=== PATIENT | female | born 1950 | race Caucasian/White ===

== ENCOUNTER 2017-06-26 09:40 | Outpatient (CLI) | payer OTHER ==
[~2017-06-26 09:40] MED LIST: ASPI81TA52 PO; HCTZ25T PO; IRBESARTAN/HCTZ PO; LECI12002 PO; PANT500T PO; POTA10TA19 PO
== END 2017-06-26 23:59 | disposition home or self-care (01) ==
LOC: RAD 09:40
PROVIDERS: ATTEND Internal Medicine
DX: M47.816 Spondylosis without myelopathy or radiculopathy, lumbar region (principal); M16.11 Unilateral primary osteoarthritis, right hip; I11.0 Hypertensive heart disease with heart failure; I50.9 Heart failure, unspecified
CPT/HCPCS: 72110; 73522

== ENCOUNTER 2017-09-04 06:50 | Outpatient (CLI) | payer OTHER ==
[2017-09-04 07:20] LABS: BASOPHILS % (AUTO) 0.4 % (0-1); EOSINOPHILS # (AUTO) 0.2 X10'3 (0-0.9); EOSINOPHILS % (AUTO) 4.3 % (0-6); HEMATOCRIT 40.6 % (35.0-45.0); HEMOGLOBIN 14.4 g/dl (12.0-16.0); LYMPHOCYTES # (AUTO) 1.4 X10'3 (1.1-4.8); MEAN CORPUSCULAR HEMOGLOBIN 30.5 PG (27.0-31.0); MEAN CORPUSCULAR HGB CONC 35.3 % (33.0-36.5); MEAN CORPUSCULAR VOLUME 86.4 FL (78-98); MONOCYTES # (AUTO) 0.6 X10'3 (0-0.9); MONOCYTES % (AUTO) 10.8 % (2-12); NEUTROPHILS # (AUTO) 3.2 X10'3 (1.8-7.7); NEUTROPHILS % (AUTO) 58.5 % (42-75); PLATELET COUNT 254 X10'3 (140-440); RED CELL DISTRIBUTION WIDTH 14.4 % (11.5-14.5); WHITE BLOOD COUNT 5.5 X10'3 (4.5-11.0)
[2017-09-04 07:35] LABS: HEMOGLOBIN A1C 5.6 % (4.5-6.2)
[2017-09-04 07:45] LABS: ALANINE AMINOTRANSFERASE 29 U/L (12-78); ALBUMIN 3.5 G/DL (3.4-5.0); ALBUMIN/GLOBULIN RATIO 1.1 (1.1-1.5); ALKALINE PHOSPHATASE 44 IU/L (46-116); ANION GAP 9 (8-16); ASPARTATE AMINO TRANSFERASE 15 U/L (10-37); BILIRUBIN,TOTAL 0.6 MG/DL (0.1-1.0); BLOOD UREA NITROGEN 20 MG/DL (7-18); BUN/CREATININE RATIO 29.4 (6.6-38.0); CALCIUM 8.9 MG/DL (8.5-10.1); CHLORIDE 105 MMOL/L (99-107); CHOL/HDL RATIO 3.7 (0.00-4.99); CHOLESTEROL 142 MG/DL (0-200); CREATININE 0.68 MG/DL (0.40-0.90); GLUCOSE 135 MG/DL (70-104); HDL CHOLESTEROL 38 MG/DL (35-60); LDL CHOLESTEROL 74 MG/DL (50-100); POTASSIUM 3.6 MMOL/L (3.5-5.1); SODIUM 143 MMOL/L (135-145); TOTAL CARBON DIOXIDE 29.5 MMOL/L (24-32); TOTAL PROTEIN 6.6 G/DL (6.4-8.2); TRIGLYCERIDES 137 MG/DL (20-135); eGFR 86 ML/MIN
[2017-09-04 08:51] LABS: CLARITY,URINE SLIGHTLY CLOUDY (Clear); COLOR,URINE YELLOW (Yellow); GLUCOSE, URINE NEGATIVE (Neg); KETONES,URINE NEGATIVE (Neg); LEUKOCYTE ESTERASE ,URINE SMALL (Neg); NITRITES, URINE NEGATIVE (Neg); OCCULT BLOOD,URINE NEGATIVE (Neg); PROTEIN,URINE NEGATIVE (Neg); UROBILINOGEN,URINE 0.2 E.U/dL (0.2-1.0)
[2017-09-04 08:56] LABS: UA COLLECTION TYPE CLN CATCH MIDSTREAM
[2017-09-04 08:57] LABS: MUCUS STRANDS MANY /LPF (Neg); SQUAMOUS EPITHELIAL CELL,UR FEW /LPF (FEW); TRANSITIONAL EPI CELLS,URINE FEW /HPF
[2017-09-04 08:58] LABS: BACTERIA,URINE NONE SEEN /HPF (Neg); RBC,URINE 0-2 /HPF (0-2); WBC,URINE 0-4 /HPF (0-4)
== END 2017-09-04 23:59 | disposition home or self-care (01) ==
LOC: VAS 06:50
PROVIDERS: ATTEND Family Medicine
DX: M79.89 Other specified soft tissue disorders (principal); R60.0 Localized edema; R59.9 Enlarged lymph nodes, unspecified
CPT/HCPCS: 36415; 80053; 80061; 81001; 83036; 84439; 84443; 85025; 93971

== ENCOUNTER 2017-11-15 08:01 | Outpatient (CLI) | payer OTHER ==
[2017-11-15] VITALS (7 sets, daily range): BP systolic 114–128; BP diastolic 46–51
[~2017-11-15] VITALS: Ht 172.7 cm; Wt 81.0 kg
[2017-11-15] MEDS ORDERED: CAFFEINE CITRATE 60 MG/3 ML injection vial IV ONE ×2 (08:45→09:36)
[2017-11-15] MEDS ORDERED: regadenoson 0.4mg/5ml syringe IV ONE ×2 (08:45→09:36)
[2017-11-15] MEDS ORDERED: normal saline 500ml IV soln 500 ML IV ONE (08:45)
[2017-11-15] MEDS ORDERED: metoprolol tartrate 1mg/ml inj IV PRN (08:45)
[2017-11-15] MEDS ORDERED: atropine 0.1mg/ml 10ml syringe IV PRN (08:45)
[2017-11-15] MEDS ORDERED: nitroGLYCERIN 0.4mg SUBLingual tab SL PRN (08:45)
[2017-11-15] MEDS ORDERED: EZET10TA13 PO (14:57)
== END 2017-11-15 23:59 ==
LOC: RAD 08:01
PROVIDERS: ATTEND Internal Medicine Interventional Cardiology
DX: R09.89 Other specified symptoms and signs involving the circulatory and respiratory systems (principal); I25.10 Atherosclerotic heart disease of native coronary artery without angina pectoris; I11.0 Hypertensive heart disease with heart failure; I50.9 Heart failure, unspecified; R07.89 Other chest pain
CPT/HCPCS: 78452; 93017; A9500; J7030

== ENCOUNTER 2017-12-12 08:36 | Outpatient (CLI) | payer OTHER ==
[~2017-12-12 08:36] MED LIST changes: +EZET10TA13 PO
== END 2017-12-12 23:59 | disposition home or self-care (01) ==
LOC: RAD 08:36
PROVIDERS: ATTEND Registered Nurse
DX: M19.072 Primary osteoarthritis, left ankle and foot (principal); M21.622 Bunionette of left foot; I11.0 Hypertensive heart disease with heart failure; I50.9 Heart failure, unspecified
CPT/HCPCS: 73718

== ENCOUNTER → 2018-02-07 | Outpatient (CLI) | payer OTHER, MEDICARE ==
[~2018-02-07] MED LIST changes: +NITR100C6 PO
== END | disposition home or self-care (01) ==
LOC: RAD 10:31
PROVIDERS: ATTEND Family Medicine
DX: M25.461 Effusion, right knee (principal); M22.41 Chondromalacia patellae, right knee; I11.0 Hypertensive heart disease with heart failure; I50.9 Heart failure, unspecified; Z79.82 Long term (current) use of aspirin
CPT/HCPCS: 73721

== ENCOUNTER 2018-10-10 13:26 | Outpatient (CLI) | payer OTHER, MEDICARE ==
[~2018-10-10 13:26] MED LIST changes: +ASCO500C15 PO; +IRBE1TAB65 PO; -IRBESARTAN/HCTZ PO; -LECI12002 PO; -NITR100C6 PO
[2018-10-10] MEDS ORDERED: ACYC-202 PO (15:45)
[2018-10-10] MEDS ORDERED: DOXY100C43 PO (15:45)
== END 2018-10-10 23:59 | disposition home or self-care (01) ==
LOC: RAD 13:26
PROVIDERS: ATTEND Orthopaedic Surgery
DX: S83.231A Complex tear of medial meniscus, current injury, right knee, initial encounter (principal); M94.261 Chondromalacia, right knee; X58.XXXA Exposure to other specified factors, initial encounter; Y93.89 Activity, other specified; Y92.89 Other specified places as the place of occurrence of the external cause; Y99.8 Other external cause status
CPT/HCPCS: 73721

== ENCOUNTER 2018-10-10 15:03 | Emergency (ER) | payer OTHER, MEDICARE ==
[~2018-10-10] VITALS: Ht 172.7 cm; Wt 86.0 kg
[2018-10-10 15:23] VITALS: BP 154/73
[2018-10-10] MEDS ORDERED: ACYC-202 PO (15:45)
[2018-10-10] MEDS ORDERED: DOXY100C43 PO (15:45)
== END 2018-10-10 15:50 | disposition home or self-care (01) ==
LOC: ER 15:04
DX: L03.313 Cellulitis of chest wall (principal); B02.9 Zoster without complications; I25.10 Atherosclerotic heart disease of native coronary artery without angina pectoris; I10 Essential (primary) hypertension; I25.2 Old myocardial infarction; Z98.61 Coronary angioplasty status; Z98.890 Other specified postprocedural states; Z88.0 Allergy status to penicillin; Z88.2 Allergy status to sulfonamides; Z88.8 Allergy status to other drugs, medicaments and biological substances; Z79.82 Long term (current) use of aspirin; Z79.899 Other long term (current) drug therapy
CPT/HCPCS: 99283

== ENCOUNTER 2019-01-12 20:31 | Emergency (ER) | payer OTHER, MEDICARE ==
[~2019-01-12] VITALS: Ht 172.7 cm; Wt 85.0 kg
[2019-01-12 20:41] VITALS: BP 144/58
[2019-01-12] MEDS ORDERED: HYDR-4353 PO (22:00)
[2019-01-12] MEDS ORDERED: ketorolac tromethamine 15mg/ml inj. IM ONE (22:00)
[2019-01-12] MEDS ORDERED: orphenadrine citrate 60mg/2ml inj. IM ONE (22:00)
== END 2019-01-12 22:40 | disposition home or self-care (01) ==
LOC: ER 20:32
DX: M23.92 Unspecified internal derangement of left knee (principal); I25.10 Atherosclerotic heart disease of native coronary artery without angina pectoris; I10 Essential (primary) hypertension; I25.2 Old myocardial infarction; F10.99 Alcohol use, unspecified with unspecified alcohol-induced disorder; Z98.61 Coronary angioplasty status; Z98.890 Other specified postprocedural states; Z88.0 Allergy status to penicillin; Z88.2 Allergy status to sulfonamides; Z88.1 Allergy status to other antibiotic agents; Z88.8 Allergy status to other drugs, medicaments and biological substances; Z79.82 Long term (current) use of aspirin; Z79.899 Other long term (current) drug therapy; Y90.9 Presence of alcohol in blood, level not specified
CPT/HCPCS: 29505; 73564; 96372; 99283; J1885; J2360

== ENCOUNTER 2019-01-16 12:37 | Outpatient (CLI) | payer OTHER, MEDICARE ==
[~2019-01-16 12:37] MED LIST changes: -EZET10TA13 PO; +HYDR-4353 PO; +ZET10T PO
== END 2019-01-16 23:59 | disposition home or self-care (01) ==
LOC: RAD 12:37
PROVIDERS: ATTEND Family Medicine
DX: S83.242A Other tear of medial meniscus, current injury, left knee, initial encounter (principal); M25.462 Effusion, left knee; X58.XXXA Exposure to other specified factors, initial encounter; Y93.89 Activity, other specified; Y92.89 Other specified places as the place of occurrence of the external cause; Y99.8 Other external cause status
CPT/HCPCS: 73721

== ENCOUNTER 2019-01-30 07:59 | Outpatient (CLI) | payer OTHER, MEDICARE ==
[~2019-01-30 07:59] MED LIST changes: -HYDR-4353 PO
[2019-01-30 08:26] LABS: CLARITY,URINE SLIGHTLY CLOUDY (Clear); COLOR,URINE YELLOW (Yellow); GLUCOSE, URINE NEGATIVE (Neg); KETONES,URINE NEGATIVE (Neg); LEUKOCYTE ESTERASE ,URINE MODERATE (Neg); NITRITES, URINE NEGATIVE (Neg); OCCULT BLOOD,URINE NEGATIVE (Neg); PH,URINE 5.5 (4.8-8.0); PROTEIN,URINE NEGATIVE (Neg); UROBILINOGEN,URINE 0.2 E.U/dL (0.2-1.0)
[2019-01-30 08:29] LABS: BASOPHILS # (AUTO) 0.1 X10'3 (0-0.2); EOSINOPHILS # (AUTO) 0.2 X10'3 (0-0.9); EOSINOPHILS % (AUTO) 3.3 % (0-6); HEMATOCRIT 43.5 % (35.0-45.0); HEMOGLOBIN 14.7 g/dl (12.0-16.0); LYMPHOCYTES # (AUTO) 1.2 X10'3 (1.1-4.8); LYMPHOCYTES % (AUTO) 24.9 % (21-51); MEAN CORPUSCULAR HEMOGLOBIN 29.9 PG (27.0-31.0); MEAN CORPUSCULAR HGB CONC 33.9 g/dL (33.0-36.5); MEAN CORPUSCULAR VOLUME 88.2 FL (78-98); MONOCYTES # (AUTO) 0.6 X10'3 (0-0.9); MONOCYTES % (AUTO) 12.3 % (2-12); NEUTROPHILS # (AUTO) 2.9 X10'3 (1.8-7.7); NEUTROPHILS % (AUTO) 58.5 % (42-75); PLATELET COUNT 274 X10'3 (140-440); RED BLOOD COUNT 4.93 X10'6 (4.20-5.60)
[2019-01-30 08:34] LABS: UA COLLECTION TYPE CLN CATCH MIDSTREAM
[2019-01-30 08:38] LABS: BACTERIA,URINE 1+ /HPF (Neg); MUCUS STRANDS FEW /LPF (Neg); RBC,URINE 0-2 /HPF (0-2); RENAL CELLS, URINE FEW /HPF; SQUAMOUS EPITHELIAL CELL,UR FEW /LPF (FEW); WBC CLUMPS,URINE FEW /HPF (NEGATIVE)
[2019-01-30 08:48] LABS: ALANINE AMINOTRANSFERASE 26 U/L (12-78); ALBUMIN 3.6 G/DL (3.4-5.0); ALBUMIN/GLOBULIN RATIO 1.2 (1.1-1.5); ALKALINE PHOSPHATASE 48 IU/L (46-116); ANION GAP 3 (8-16); ASPARTATE AMINO TRANSFERASE 13 U/L (10-37); BILIRUBIN,TOTAL 0.5 MG/DL (0.1-1.0); BLOOD UREA NITROGEN 19 MG/DL (7-18); BUN/CREATININE RATIO 26.4 (6.6-38.0); CALCIUM 8.9 MG/DL (8.5-10.1); CHLORIDE 107 MMOL/L (99-107); CHOL/HDL RATIO 3.8 (0.00-4.99); CHOLESTEROL 128 MG/DL (0-200); CREATININE 0.72 MG/DL (0.40-0.90); GLUCOSE 138 MG/DL (70-104); HDL CHOLESTEROL 34 MG/DL (35-60); LDL CHOLESTEROL 73 MG/DL (50-100); POTASSIUM 3.5 MMOL/L (3.5-5.1); SODIUM 142 MMOL/L (135-145); TOTAL CARBON DIOXIDE 31.8 MMOL/L (24-32); TOTAL PROTEIN 6.7 G/DL (6.4-8.2); TRIGLYCERIDES 113 MG/DL (20-135); eGFR 81 ML/MIN
== END 2019-01-30 23:59 | disposition home or self-care (01) ==
LOC: LAB 07:59
PROVIDERS: ATTEND Family Medicine
DX: Z00.00 Encounter for general adult medical examination without abnormal findings (principal); N39.0 Urinary tract infection, site not specified; I11.0 Hypertensive heart disease with heart failure; I50.9 Heart failure, unspecified
CPT/HCPCS: 36415; 80053; 80061; 81001; 84439; 84443; 85025; 87088

== ENCOUNTER 2019-02-13 09:34 | Outpatient (CLI) | payer OTHER, MEDICARE | END 2019-02-13 23:59 | disposition home or self-care (01) | LOC: RAD 09:34 | PROVIDERS: ATTEND Orthopaedic Surgery | DX: M17.12 Unilateral primary osteoarthritis, left knee (principal); I11.0 Hypertensive heart disease with heart failure; I50.9 Heart failure, unspecified | CPT/HCPCS: 73564 ==

== ENCOUNTER 2019-03-04 15:28 | Emergency (ER) | payer MEDICARE, OTHER ==
[~2019-03-04] VITALS: Ht 172.7 cm; Wt 81.8 kg
[2019-03-04 15:42] VITALS: BP 130/62
[2019-03-04] MEDS ORDERED: ketorolac trometh. 30mg/ml inj. IM ONE (16:05)
== END 2019-03-04 16:24 | disposition home or self-care (01) ==
LOC: ER 15:29 → EEVIPCON 15:29 → ER 16:24
DX: M25.562 Pain in left knee (principal); M25.462 Effusion, left knee; G89.29 Other chronic pain; I25.10 Atherosclerotic heart disease of native coronary artery without angina pectoris; I10 Essential (primary) hypertension; I25.2 Old myocardial infarction; F10.99 Alcohol use, unspecified with unspecified alcohol-induced disorder; Z98.890 Other specified postprocedural states; Z98.61 Coronary angioplasty status; Z88.0 Allergy status to penicillin; Z88.1 Allergy status to other antibiotic agents; Z88.2 Allergy status to sulfonamides; Z88.8 Allergy status to other drugs, medicaments and biological substances; Z79.82 Long term (current) use of aspirin; Z79.899 Other long term (current) drug therapy; Y90.9 Presence of alcohol in blood, level not specified
CPT/HCPCS: 96372; 99283; J1885

== ENCOUNTER 2019-04-10 13:36 | Outpatient (CLI) | payer OTHER | END 2019-04-10 23:59 | disposition home or self-care (01) | LOC: VAS 13:36 | PROVIDERS: ATTEND Orthopaedic Surgery Sports Medicine | DX: R60.0 Localized edema (principal); I11.0 Hypertensive heart disease with heart failure; I50.9 Heart failure, unspecified | CPT/HCPCS: 93971 ==

== ENCOUNTER 2019-04-17 13:09 | Emergency (ER) | payer OTHER, MEDICARE ==
[~2019-04-17] VITALS: Ht 172.7 cm; Wt 87.0 kg
[2019-04-17 13:24] VITALS: BP 126/50
--- NOTE | 2019-04-17 14:11 | NUR ---
relieving RN for break, pt is resting quietly on gurney, waiting to be evaluated by provider
[2019-04-17] MEDS ORDERED: naproxen 500mg tablet PO ONE (14:25)
== END 2019-04-17 14:52 | disposition home or self-care (01) ==
LOC: ER 13:11
DX: S60.212A Contusion of left wrist, initial encounter (principal); I25.10 Atherosclerotic heart disease of native coronary artery without angina pectoris; I10 Essential (primary) hypertension; I25.2 Old myocardial infarction; Z95.5 Presence of coronary angioplasty implant and graft; Z98.890 Other specified postprocedural states; Z88.1 Allergy status to other antibiotic agents; Z88.0 Allergy status to penicillin; Z88.2 Allergy status to sulfonamides; Z79.82 Long term (current) use of aspirin; Z79.899 Other long term (current) drug therapy; W18.09XA Striking against other object with subsequent fall, initial encounter; Y93.89 Activity, other specified; Y92.89 Other specified places as the place of occurrence of the external cause; Y99.9 Unspecified external cause status
CPT/HCPCS: 29125; 73110; 99284

== ENCOUNTER 2019-07-03 07:03 | Outpatient (CLI) | payer OTHER, MEDICARE | END 2019-07-03 23:59 | disposition home or self-care (01) | LOC: LAB 07:03 | PROVIDERS: ATTEND Family Medicine | DX: R73.9 Hyperglycemia, unspecified (principal) | CPT/HCPCS: 36415; 82043; 83036 ==

== ENCOUNTER 2019-08-07 07:41 | Outpatient (CLI) | payer OTHER, MEDICARE ==
[2019-08-07 08:26] LABS: ALANINE AMINOTRANSFERASE 29 U/L (12-78); ALBUMIN 3.5 G/DL (3.4-5.0); ALBUMIN/GLOBULIN RATIO 1.2 (1.1-1.5); ALKALINE PHOSPHATASE 54 IU/L (46-116); ANION GAP 4 (8-16); ASPARTATE AMINO TRANSFERASE 17 U/L (10-37); BILIRUBIN,TOTAL 0.6 MG/DL (0.1-1.0); BLOOD UREA NITROGEN 16 MG/DL (7-18); BUN/CREATININE RATIO 23.9 (6.6-38.0); CHLORIDE 108 MMOL/L (99-107); CHOL/HDL RATIO 3.9 (0.00-4.99); CHOLESTEROL 150 MG/DL (0-200); CREATININE 0.67 MG/DL (0.40-0.90); GLUCOSE 136 MG/DL (70-104); HDL CHOLESTEROL 38 MG/DL (35-60); LDL CHOLESTEROL 91 MG/DL (50-100); POTASSIUM 3.5 MMOL/L (3.5-5.1); SODIUM 143 MMOL/L (135-145); TOTAL CARBON DIOXIDE 31.2 MMOL/L (24-32); TOTAL PROTEIN 6.5 G/DL (6.4-8.2); TRIGLYCERIDES 101 MG/DL (20-135); eGFR 87 ML/MIN
== END 2019-08-07 23:59 | disposition home or self-care (01) ==
LOC: RAD 07:41
PROVIDERS: ATTEND Family Medicine
DX: M25.511 Pain in right shoulder (principal); M25.512 Pain in left shoulder; R42 Dizziness and giddiness; E78.5 Hyperlipidemia, unspecified
CPT/HCPCS: 36415; 73030; 78452; 80053; 80061; A9500

== ENCOUNTER 2019-08-07 07:48 | Outpatient (CLI) | payer OTHER, MEDICARE ==
[~2019-08-07] VITALS: Ht 172.7 cm; Wt 85.5 kg
[2019-08-07] MEDS ORDERED: nitroGLYCERIN 0.4mg SUBLingual tab SL PRN (08:50)
[2019-08-07] MEDS ORDERED: normal saline 500ml IV soln 500 ML IV ONE (08:50)
[2019-08-07] MEDS ORDERED: aminophylline 250mg/10ml inj. IV PRN (08:50)
[2019-08-07] MEDS ORDERED: regadenoson 0.4mg/5ml syringe IV ONE (08:50)
[2019-08-07 10:35] VITALS: BP 128/53
[2019-08-07 10:52] VITALS: BP 144/72
[2019-08-07 10:53] VITALS: BP_SYST 130; BP_SYST 132; BP_DIAS 51
[2019-08-07 10:54] VITALS: BP 129/51
[2019-08-07 10:55] VITALS: BP 125/53
[2019-08-07 10:56] VITALS: BP 122/54
== END 2019-08-07 23:59 | disposition home or self-care (01) ==
LOC: VAS 07:48
PROVIDERS: ATTEND Internal Medicine Interventional Cardiology
DX: I65.23 Occlusion and stenosis of bilateral carotid arteries (principal); E78.5 Hyperlipidemia, unspecified; I25.118 Atherosclerotic heart disease of native coronary artery with other forms of angina pectoris; I10 Essential (primary) hypertension
CPT/HCPCS: 93017; 93880; J7040

== ENCOUNTER 2020-04-29 12:03 | Day surgery (SDC) | payer BC, MEDICARE ==
[2020-04-20 11:37] LABS: BASOPHILS % (AUTO) 0.7 % (0-1); EOSINOPHILS # (AUTO) 0.2 X10'3 (0-0.9); EOSINOPHILS % (AUTO) 2.4 % (0-6); LYMPHOCYTES # (AUTO) 1.5 X10'3 (1.1-4.8); LYMPHOCYTES % (AUTO) 22.6 % (21-51); MEAN CORPUSCULAR HEMOGLOBIN 30.1 PG (27.0-31.0); MEAN CORPUSCULAR HGB CONC 33.8 g/dL (33.0-36.5); MEAN CORPUSCULAR VOLUME 89.1 FL (78-98); MEAN PLATELET VOLUME 8.2 FL (7.4-10.4); MONOCYTES # (AUTO) 0.8 X10'3 (0-0.9); MONOCYTES % (AUTO) 12.1 % (2-12); NEUTROPHILS # (AUTO) 4.1 X10'3 (1.8-7.7); NEUTROPHILS % (AUTO) 62.2 % (42-75); PRE OP HEMATOCRIT 42.9 % (35.0-45.0); PRE OP HEMOGLOBIN 14.5 g/dL (12.0-16.0); PRE OP PLATELET COUNT 264 X10'3 (140-440); RED BLOOD COUNT 4.82 X10'6 (4.20-5.60); RED CELL DISTRIBUTION WIDTH 14.5 % (11.5-14.5)
[2020-04-20 11:48] LABS: PRE OP PROTIME 10.8 SECONDS (9.0-12.0)
[2020-04-20 11:53] LABS: ALBUMIN 3.9 G/DL (3.4-5.0); ALBUMIN/GLOBULIN RATIO 1.2 (1.1-1.5); ALKALINE PHOSPHATASE 51 IU/L (46-116); BLOOD UREA NITROGEN 13 MG/DL (7-18); BUN/CREATININE RATIO 22.4 (6.6-38.0); CALCIUM 9.5 MG/DL (8.5-10.1); CHLORIDE 104 MMOL/L (99-107); CREATININE 0.58 MG/DL (0.40-0.90); PRE OP ALT 27 U/L (30-65); PRE OP ANION GAP 7 (8-16); PRE OP AST 16 U/L (10-37); PRE OP BILIRUB, TOTAL 0.7 MG/DL (0.0-1.0); PRE OP GLUCOSE 101 MG/DL (70-104); PRE OP POTASSIUM 3.5 MMOL/L (3.4-5.1); PRE OP SODIUM 142 MMOL/L (135-145); TOTAL PROTEIN 7.1 G/DL (6.4-8.2); eGFR > 90 ML/MIN
[~2020-04-29] VITALS: Ht 172.7 cm; Wt 81.0 kg
[2020-04-29] VITALS (11 sets, daily range): BP systolic 132–156; BP diastolic 58–79
[~2020-04-29 12:03] MED LIST changes: -ASCO500C15 PO; +ASCO500C18 PO; +MESSAGE TO NURSING IV ONE; -PANT500T PO; +famotidine 20mg tablet PO ONE; +ringers solution, lacted 1,000 ML IV SCH
[2020-04-29] MEDS ORDERED: LIDOcaine 1% (10mg/ml) 2ml vial ONE (13:16)
[2020-04-29] MEDS ORDERED: vancomycin/NS 1 GM ADD-VANTAGE 250 ML IV ONE (13:50)
[2020-04-29] MEDS ORDERED: scopolamine 1.5mg patch.TD72 TD ONE (14:05)
[2020-04-29] MEDS ORDERED: BUPIVAcaine/PF 2.5 mg/ml (0.25%) 30ml vial ONE (14:10)
[2020-04-29] MEDS ORDERED: bacitracin 15gm ointment TP ONE (14:11)
[2020-04-29] MEDS ORDERED: fentaNYL/PF 50MCG/1 ML 2ML syringe ONE ×2 (14:12→14:41)
[2020-04-29] MEDS ORDERED: midazolam 2 mg/2 ml injection ONE (14:12)
[2020-04-29] MEDS ORDERED: propofol inj 20 ML IV ONE (14:14)
[2020-04-29] MEDS ORDERED: rocuronium 10mg/ml inj IV ONE (14:14)
[2020-04-29] MEDS ORDERED: LIDOcaine 2% (20mg/ml) 5ml vial ONE (14:14)
[2020-04-29] MEDS ORDERED: ringers solution, lacted 1,000 ML IV SCH (14:20)
[2020-04-29] MEDS ORDERED: morphine 2 MG/ML inj. syringe IV PRN (14:20)
[2020-04-29] MEDS ORDERED: proCHLORperazine 10 MG/2 ml inj IV PRN (14:20)
[2020-04-29] MEDS ORDERED: meperidine/PF 25mg/ml syringe IV PRN ×3 (14:20)
[2020-04-29] MEDS ORDERED: morphine 4 MG/ML inj SYRINge IV PRN (14:20)
[2020-04-29] MEDS ORDERED: ondansetron/PF 4mg/2ml inj IV PRN (14:20)
[2020-04-29] MEDS ORDERED: sevoflurane 250ml liquid IH ONE (14:28)
[2020-04-29] MEDS ORDERED: glycopyrrolate 0.2mg/ml inj ONE (14:59)
[2020-04-29] MEDS ORDERED: neostigmine methylsulfate 1 MG/ML 10ml vial ONE (14:59)
[2020-04-29] MEDS ORDERED: ketorolac trometh. 30mg/ml inj. ONE (14:59)
[2020-04-29] MEDS ORDERED: dexamethasone sod phosphate 4mg/ml inj. ONE (14:59)
[2020-04-29] MEDS ORDERED: ondansetron/PF 4mg/2ml inj ONE (14:59)
[2020-04-29] MEDS ORDERED: sugammadex 200mg/2ml injection IV ONE (15:23)
--- NOTE | 2020-04-29 15:24 | NUR ---
Received from OR via [facility] , accompanied by Anesthesiologist MAYDA and report given by Anesthesiolgist. PATIENT WITH 20G PIV IN RIGHT UE RUNNING LR AT 100. LEFT FOOT IN [place] BANDAGE WRAP WITH TOES EXPOSED. ALL PWD, NO DRAINAGE PRESENT. + CAP REFILL. Addendum: 04/29/20 at 1540 by Franklin Tejada RN, RN Amended: Links added.
--- NOTE | 2020-04-29 16:54 | NUR ---
PATIENT AND FAMILY AND THEY HAVE VERBALIZED UNDERSTANDING, OPPORTUNITY TO ASK QUESTIONS GIVEN AND PATIENT COMFORTABLE WITH DC. IV TAKEN OUT WITHOUT COMPLICATION. PATIENT HAS MET ALL DC CRITERIA FOR DC HOME. I HAVE REVIEWED D/C INSTRUCTIONS WITH OUT VIA WHEELCHAIR WHERE PATIENT WAS TAKEN HOME WITH ALL BELONGINGS. FAMILY GAVE PATIENT TRANSPORT HOME. VOIDED PRIOR TO DC. SON PICKED PATIENT UP. Addendum: 04/29/20 at 1703 by Franklin Tejada RN, RN Amended: Links added.
== END 2020-04-29 16:54 | disposition home or self-care (01) ==
LOC: PAS 12:03
PROVIDERS: ATTEND Podiatrist Foot & Ankle Surgery
DX: M21.622 Bunionette of left foot (principal); G57.82 Other specified mononeuropathies of left lower limb; I10 Essential (primary) hypertension; I25.10 Atherosclerotic heart disease of native coronary artery without angina pectoris; I25.2 Old myocardial infarction; Z20.828 Contact with and (suspected) exposure to other viral communicable diseases; Z79.01 Long term (current) use of anticoagulants; Z79.899 Other long term (current) drug therapy; Z90.710 Acquired absence of both cervix and uterus; Z98.890 Other specified postprocedural states; Z95.5 Presence of coronary angioplasty implant and graft; Z88.0 Allergy status to penicillin; Z88.2 Allergy status to sulfonamides; Z88.1 Allergy status to other antibiotic agents; Z91.041 Radiographic dye allergy status; Z79.82 Long term (current) use of aspirin; Z72.89 Other problems related to lifestyle
CPT/HCPCS: 28080; 28110; 36415; 73620; 76000; 80053; 82948; 85025; 85610; 85730; 87635; 93005; A6223; J1100; J1885; J2001; J2175; J2250; J2405; J2704; J2710; J3010; J3370; J3490; A4215; A4618; A6449; A7000; C9399; J7120

== ENCOUNTER 2020-05-24 14:00 | Emergency (ER) | payer BC, MEDICARE ==
[~2020-05-24] VITALS: Ht 172.7 cm; Wt 88.0 kg
[~2020-05-24 14:00] MED LIST changes: -MESSAGE TO NURSING IV ONE; -famotidine 20mg tablet PO ONE; -ringers solution, lacted 1,000 ML IV SCH
[2020-05-24 14:16] VITALS: BP 158/65
[2020-05-24] MEDS ORDERED: benzonatate 100mg capsule PO ONE (14:25)
[2020-05-24] MEDS ORDERED: BENZ-16 PO (14:39)
--- NOTE | 2020-05-24 15:02 | NUR ---
SPOKE TO ANGEL IN LAB, CORONAVIRUS SWAB HAS BEEN SENT TO [facility]
== END 2020-05-24 15:32 | disposition home or self-care (01) ==
LOC: ER 14:00 → EEVIPCON 14:00 → ER 15:32
DX: U07.1 COVID-19 (principal); T81.89XA Other complications of procedures, not elsewhere classified, initial encounter; R19.7 Diarrhea, unspecified; M79.672 Pain in left foot; R05 Cough; R09.89 Other specified symptoms and signs involving the circulatory and respiratory systems; R50.9 Fever, unspecified; I25.10 Atherosclerotic heart disease of native coronary artery without angina pectoris; I10 Essential (primary) hypertension; I25.2 Old myocardial infarction; Z98.890 Other specified postprocedural states; Z72.89 Other problems related to lifestyle; Z88.0 Allergy status to penicillin; Z88.2 Allergy status to sulfonamides; Z88.8 Allergy status to other drugs, medicaments and biological substances; Z79.82 Long term (current) use of aspirin; Z79.899 Other long term (current) drug therapy; X58.XXXA Exposure to other specified factors, initial encounter; Y93.89 Activity, other specified; Y92.89 Other specified places as the place of occurrence of the external cause; Y99.8 Other external cause status
CPT/HCPCS: 36415; 99283

== ENCOUNTER 2020-06-13 12:02 | Outpatient (CLI) | payer BC, MEDICARE ==
[~2020-06-13 12:02] MED LIST changes: +BENZ-16 PO
== END 2020-06-13 23:59 | disposition home or self-care (01) ==
LOC: RAD 12:02
PROVIDERS: ATTEND Family Medicine
DX: R05 Cough (principal)
CPT/HCPCS: 71046

== ENCOUNTER 2020-11-02 15:04 | Outpatient (CLI) | payer BC, MEDICARE ==
[~2020-11-02 15:04] MED LIST changes: -BENZ-16 PO; -HCTZ25T PO; +HYDR25TA5 PO
== END 2020-11-02 23:59 | disposition home or self-care (01) ==
LOC: RAD 15:04
PROVIDERS: ATTEND Family Medicine
DX: K59.00 Constipation, unspecified (principal)
CPT/HCPCS: 74018

== ENCOUNTER 2021-04-25 07:33 | Outpatient (CLI) | payer MEDICARE ==
[2021-04-25] VITALS (8 sets, daily range): BP systolic 137–150; BP diastolic 52–71
[~2021-04-25] VITALS: Ht 170.2 cm; Wt 80.0 kg
[~2021-04-25 07:33] MED LIST changes: +POTA-192 PO; -POTA10TA19 PO
[2021-04-25] MEDS ORDERED: metoprolol tartrate 1mg/ml inj IV PRN (08:40)
[2021-04-25] MEDS ORDERED: aminophylline 250mg/10ml inj. IV PRN (08:40)
[2021-04-25] MEDS ORDERED: nitroGLYCERIN 0.4mg SUBLingual tab SL PRN (08:40)
[2021-04-25] MEDS ORDERED: normal saline 500ml IV soln 500 ML IV ONE (08:40)
[2021-04-25] MEDS ORDERED: DOBUTamine-DoBUTrex 500mg/D5W 250 ML IV SCH (08:45)
[2021-04-25] MEDS ORDERED: regadenoson 0.4mg/5ml syringe IV PRN (08:45)
== END 2021-04-25 23:59 | disposition home or self-care (01) ==
LOC: RAD 07:33
PROVIDERS: ATTEND Internal Medicine Interventional Cardiology
DX: I34.0 Nonrheumatic mitral (valve) insufficiency (principal); I65.23 Occlusion and stenosis of bilateral carotid arteries; I25.118 Atherosclerotic heart disease of native coronary artery with other forms of angina pectoris
CPT/HCPCS: 78452; 93017; 93306; 93880; A9500; J0280; J1250; J2785; J7040

== ENCOUNTER 2021-05-24 10:10 | Outpatient (CLI) | payer MEDICARE ==
[2021-05-24 10:45] LABS: BASOPHILS % (AUTO) 0.5 % (0-1); EOSINOPHILS # (AUTO) 0.1 X10'3 (0-0.9); EOSINOPHILS % (AUTO) 0.6 % (0-6); HEMATOCRIT 42.7 % (35.0-45.0); HEMOGLOBIN 14.9 g/dl (12.0-16.0); LYMPHOCYTES # (AUTO) 1.1 X10'3 (1.1-4.8); LYMPHOCYTES % (AUTO) 11.2 % (21-51); MEAN CORPUSCULAR HEMOGLOBIN 30.9 PG (27.0-31.0); MEAN CORPUSCULAR VOLUME 88.4 FL (78-98); MEAN PLATELET VOLUME 7.7 FL (7.4-10.4); MONOCYTES # (AUTO) 0.7 X10'3 (0-0.9); NEUTROPHILS % (AUTO) 80.7 % (42-75); PLATELET COUNT 285 X10'3 (140-440); RED BLOOD COUNT 4.83 X10'6 (4.20-5.60); RED CELL DISTRIBUTION WIDTH 14.7 % (11.5-14.5)
[2021-05-24 10:46] LABS: COLOR,URINE YELLOW (Yellow); GLUCOSE, URINE NEGATIVE (Neg); KETONES,URINE NEGATIVE (Neg); LEUKOCYTE ESTERASE ,URINE NEGATIVE (Neg); NITRITES, URINE NEGATIVE (Neg); OCCULT BLOOD,URINE NEGATIVE (Neg); PROTEIN,URINE NEGATIVE (Neg); UROBILINOGEN,URINE 0.2 E.U/dL (0.2-1.0)
[2021-05-24 10:47] LABS: CLARITY,URINE SLIGHTLY CLOUDY (Clear); UA COLLECTION TYPE CLN CATCH MIDSTREAM
[2021-05-24 11:09] LABS: ALANINE AMINOTRANSFERASE 29 U/L (12-78); ALBUMIN 3.7 G/DL (3.4-5.0); ALBUMIN/GLOBULIN RATIO 1.2 (1.1-1.5); ALKALINE PHOSPHATASE 56 IU/L (46-116); ANION GAP 12 (8-16); ASPARTATE AMINO TRANSFERASE 20 U/L (10-37); BILIRUBIN,TOTAL 0.5 MG/DL (0.1-1.0); BLOOD UREA NITROGEN 22 MG/DL (7-18); BUN/CREATININE RATIO 21.2 (6.6-38.0); CHLORIDE 103 MMOL/L (99-107); CREATININE 1.04 MG/DL (0.40-0.90); MAGNESIUM 1.9 MG/DL (1.5-2.4); POTASSIUM 3.6 MMOL/L (3.5-5.1); SODIUM 141 MMOL/L (135-145); TOTAL CARBON DIOXIDE 26.3 MMOL/L (24-32); TOTAL PROTEIN 6.9 G/DL (6.4-8.2); eGFR 52 ML/MIN
[2021-05-24 11:21] LABS: BACTERIA,URINE FEW /HPF (Neg); SQUAMOUS EPITHELIAL CELL,UR FEW /LPF (FEW); WBC,URINE 0-4 /HPF (0-4)
[2021-05-24 11:22] LABS: GLUCOSE 177 MG/DL (70-104); MUCUS STRANDS MANY /LPF (Neg)
[2021-05-24 11:23] LABS: RBC,URINE NONE SEEN /HPF (0-2)
[2021-05-24 11:26] LABS: TRANSITIONAL EPI CELLS,URINE FEW /HPF
[2021-05-24 11:47] LABS: CAL OXALATE CRYSTALS 1+ /HPF (NEGATIVE)
== END 2021-05-24 23:59 | disposition home or self-care (01) ==
LOC: LAB 10:10
PROVIDERS: ATTEND Family Medicine
DX: R10.84 Generalized abdominal pain (principal); M46.1 Sacroiliitis, not elsewhere classified; Z00.01 Encounter for general adult medical examination with abnormal findings
CPT/HCPCS: 36415; 74018; 80053; 81001; 83735; 84439; 84443; 85025

== ENCOUNTER 2021-08-11 06:01 | Outpatient (CLI) | payer MEDICARE ==
[2021-08-11 06:30] LABS: BASOPHILS % (AUTO) 0.6 % (0-1); EOSINOPHILS # (AUTO) 0.2 X10'3 (0-0.9); EOSINOPHILS % (AUTO) 3.5 % (0-6); HEMATOCRIT 43.7 % (35.0-45.0); HEMOGLOBIN 14.7 g/dl (12.0-16.0); LYMPHOCYTES # (AUTO) 1.3 X10'3 (1.1-4.8); LYMPHOCYTES % (AUTO) 20.2 % (21-51); MEAN CORPUSCULAR HEMOGLOBIN 28.9 PG (27.0-31.0); MEAN CORPUSCULAR HGB CONC 33.5 g/dL (33.0-36.5); MEAN CORPUSCULAR VOLUME 86.2 FL (78-98); MEAN PLATELET VOLUME 8.1 FL (7.4-10.4); MONOCYTES # (AUTO) 0.7 X10'3 (0-0.9); MONOCYTES % (AUTO) 11.2 % (2-12); NEUTROPHILS # (AUTO) 4.2 X10'3 (1.8-7.7); NEUTROPHILS % (AUTO) 64.5 % (42-75); PLATELET COUNT 234 X10'3 (140-440); RED BLOOD COUNT 5.07 X10'6 (4.20-5.60); RED CELL DISTRIBUTION WIDTH 15.7 % (11.5-14.5); WHITE BLOOD COUNT 6.5 X10'3 (4.5-11.0)
[2021-08-11 06:33] LABS: CLARITY,URINE SLIGHTLY CLOUDY (Clear); COLOR,URINE YELLOW (Yellow); GLUCOSE, URINE NEGATIVE (Neg); KETONES,URINE NEGATIVE (Neg); LEUKOCYTE ESTERASE ,URINE SMALL (Neg); NITRITES, URINE NEGATIVE (Neg); OCCULT BLOOD,URINE NEGATIVE (Neg); PH,URINE 6.5 (4.8-8.0); PROTEIN,URINE NEGATIVE (Neg); UROBILINOGEN,URINE 0.2 E.U/dL (0.2-1.0)
[2021-08-11 06:37] LABS: UA COLLECTION TYPE NON-SPECIFIED
[2021-08-11 06:39] LABS: SQUAMOUS EPITHELIAL CELL,UR MODERATE /LPF (FEW)
[2021-08-11 06:40] LABS: WBC,URINE 0-4 /HPF (0-4)
[2021-08-11 06:41] LABS: BACTERIA,URINE FEW /HPF (Neg); RBC,URINE 0-2 /HPF (0-2)
[2021-08-11 06:42] LABS: TRANSITIONAL EPI CELLS,URINE MODERATE /HPF
[2021-08-11 07:06] LABS: ALANINE AMINOTRANSFERASE 31 U/L (12-78); ALBUMIN 3.7 G/DL (3.4-5.0); ALBUMIN/GLOBULIN RATIO 1.4 (1.1-1.5); ALKALINE PHOSPHATASE 49 IU/L (46-116); ANION GAP 8 (8-16); ASPARTATE AMINO TRANSFERASE 18 U/L (10-37); BILIRUBIN,TOTAL 0.4 MG/DL (0.1-1.0); BLOOD UREA NITROGEN 16 MG/DL (7-18); BUN/CREATININE RATIO 26.7 (6.6-38.0); CALCIUM 8.6 MG/DL (8.5-10.1); CHLORIDE 105 MMOL/L (99-107); CHOLESTEROL 155 MG/DL (0-200); GLUCOSE 130 MG/DL (70-104); HDL CHOLESTEROL 52 MG/DL (35-60); LDL CHOLESTEROL 75 MG/DL (50-100); SODIUM 142 MMOL/L (135-145); TOTAL CARBON DIOXIDE 29.1 MMOL/L (24-32); TOTAL PROTEIN 6.4 G/DL (6.4-8.2); TRIGLYCERIDES 126 MG/DL (20-135); eGFR > 90 ML/MIN
== END 2021-08-11 23:59 | disposition home or self-care (01) ==
LOC: LAB 06:01
PROVIDERS: ATTEND Family Medicine
DX: E66.3 Overweight (principal); R73.03 Prediabetes; R35.0 Frequency of micturition; Z00.01 Encounter for general adult medical examination with abnormal findings
CPT/HCPCS: 36415; 80053; 80061; 81001; 84439; 84443; 85025

== ENCOUNTER 2021-10-11 13:02 | Outpatient (CLI) | payer MEDICARE | END 2021-10-11 23:59 | disposition home or self-care (01) | LOC: RAD 13:02 | DX: S22.49XA Multiple fractures of ribs, unspecified side, initial encounter for closed fracture (principal); X58.XXXA Exposure to other specified factors, initial encounter; Y93.89 Activity, other specified; Y92.89 Other specified places as the place of occurrence of the external cause; Y99.8 Other external cause status | CPT/HCPCS: 71045 ==

== ENCOUNTER 2022-03-09 07:28 | Outpatient (CLI) | payer MEDICARE | END 2022-03-09 23:59 | disposition home or self-care (01) | LOC: RAD 07:28 | PROVIDERS: ATTEND Family Medicine | DX: M25.552 Pain in left hip (principal) | CPT/HCPCS: 73502 ==

== ENCOUNTER 2022-03-30 01:25 | Observation (INO) | payer MEDICARE ==
[~2022-03-30] VITALS: Ht 172.7 cm; Wt 80.5 kg
[2022-03-30 02:19] LABS: BASOPHILS # (AUTO) 0.1 X10'3 (0-0.2); BASOPHILS % (AUTO) 0.5 % (0-1); EOSINOPHILS # (AUTO) 0.3 X10'3 (0-0.9); EOSINOPHILS % (AUTO) 2.4 % (0-6); HEMATOCRIT 38.3 % (35.0-45.0); HEMOGLOBIN 13.1 g/dl (12.0-16.0); LYMPHOCYTES # (AUTO) 1.6 X10'3 (1.1-4.8); LYMPHOCYTES % (AUTO) 13.7 % (21-51); MEAN CORPUSCULAR HEMOGLOBIN 29.6 PG (27.0-31.0); MEAN CORPUSCULAR HGB CONC 34.3 g/dL (33.0-36.5); MEAN CORPUSCULAR VOLUME 86.2 FL (78-98); MEAN PLATELET VOLUME 7.7 FL (7.4-10.4); MONOCYTES # (AUTO) 1.6 X10'3 (0-0.9); MONOCYTES % (AUTO) 13.7 % (2-12); NEUTROPHILS % (AUTO) 69.7 % (42-75); PLATELET COUNT 275 X10'3 (140-440); RED BLOOD COUNT 4.44 X10'6 (4.20-5.60); RED CELL DISTRIBUTION WIDTH 15.6 % (11.5-14.5); WHITE BLOOD COUNT 11.5 X10'3 (4.5-11.0)
[2022-03-30 02:32] LABS: ALANINE AMINOTRANSFERASE 23 U/L (12-78); ALBUMIN 3.2 G/DL (3.4-5.0); ALBUMIN/GLOBULIN RATIO 1.1 (1.1-1.5); ALKALINE PHOSPHATASE 51 IU/L (46-116); ANION GAP 6 (8-16); ASPARTATE AMINO TRANSFERASE 18 U/L (10-37); BILIRUBIN,TOTAL 0.5 MG/DL (0.1-1.0); BLOOD UREA NITROGEN 28 MG/DL (7-18); BUN/CREATININE RATIO 35.9 (6.6-38.0); CALCIUM 8.7 MG/DL (8.5-10.1); CHLORIDE 105 MMOL/L (99-107); CREATININE 0.78 MG/DL (0.40-0.90); GLUCOSE 135 MG/DL (70-104); POTASSIUM 3.8 MMOL/L (3.5-5.1); SODIUM 140 MMOL/L (135-145); TOTAL CARBON DIOXIDE 28.6 MMOL/L (24-32); TOTAL PROTEIN 6.2 G/DL (6.4-8.2); eGFR 73 ML/MIN
[2022-03-30] MEDS ORDERED: acetaminophen 325mg tablet PO ONE (03:15)
[2022-03-30 03:18] LABS: MAGNESIUM 2.1 MG/DL (1.5-2.4)
[2022-03-30] MEDS ORDERED: aspirin 81mg tab.chew PO ONE (04:00)
[2022-03-30] MEDS ORDERED: magnesium hydroxide 30ml (MOM) UD suspension PO PRN (04:35)
[2022-03-30] MEDS ORDERED: mag hydrox/Alum hydrox/simeth 30ml oral suspension PO PRN (04:35)
[2022-03-30] MEDS ORDERED: ondansetron/PF 4mg/2ml inj IV PRN (04:35)
[2022-03-30] MEDS ORDERED: dextrose 5%-1/2 normal saline 1,000 ML IV SCH (04:35)
[2022-03-30] MEDS ORDERED: morphine 2 MG/ML inj. syringe IV PRN ×2 (04:35)
[2022-03-30] MEDS ORDERED: acetaminophen 325mg tablet PO PRN ×2 (04:35)
[2022-03-30] MEDS ORDERED: nitroGLYCERIN 0.4mg SUBLingual tab SL PRN (04:35)
[2022-03-30] MEDS ORDERED: HYDROchlorothiazide 12.5mg capsule PO SCH (08:00)
[2022-03-30] MEDS ORDERED: HYDROchlorothiazide 25mg tablet PO SCH (08:00)
[2022-03-30] MEDS ORDERED: aspirin 81mg, enteric-coated 1 TAB TABLET.DR PO SCH ×2 (08:00)
[2022-03-30] MEDS ORDERED: losartan 50mg tablet PO SCH ×2 (08:00→10:02)
[2022-03-30] MEDS ORDERED: potassium chloride 10mEq ER tablet PO SCH (08:00)
[2022-03-30] MEDS ORDERED: ezetimibe 10mg tablet PO SCH ×2 (08:00→10:02)
[2022-03-30] MEDS ORDERED: docusate sod 100mg capsule PO SCH (08:00)
[2022-03-30 12:12] VITALS: BP 148/71
== END 2022-03-30 12:12 | disposition home or self-care (01) ==
LOC: ER 01:26 → ED HOLD 04:37
PROVIDERS: ADMIT Internal Medicine; ATTEND Internal Medicine
DX: M54.2 Cervicalgia (principal); R51.9 Headache, unspecified; I25.110 Atherosclerotic heart disease of native coronary artery with unstable angina pectoris; E78.5 Hyperlipidemia, unspecified; I25.2 Old myocardial infarction; I10 Essential (primary) hypertension; I49.9 Cardiac arrhythmia, unspecified; Z79.82 Long term (current) use of aspirin; Z90.710 Acquired absence of both cervix and uterus; Z88.0 Allergy status to penicillin; Z95.5 Presence of coronary angioplasty implant and graft; Z79.899 Other long term (current) drug therapy
CPT/HCPCS: 36415; 71045; 80053; 83735; 83880; 84484; 85025; 93005; 96360; 96361; 99285; G0378; J7042

== ENCOUNTER 2022-04-27 07:22 | Outpatient (CLI) | payer MEDICARE ==
[~2022-04-27 07:22] MED LIST changes: -HYDR25TA5 PO
[2022-04-27 07:44] LABS: BASOPHILS % (AUTO) 0.6 % (0-1); EOSINOPHILS # (AUTO) 0.2 X10'3 (0-0.9); EOSINOPHILS % (AUTO) 2.1 % (0-6); HEMATOCRIT 44.6 % (35.0-45.0); LYMPHOCYTES # (AUTO) 1.2 X10'3 (1.1-4.8); LYMPHOCYTES % (AUTO) 17.4 % (21-51); MEAN CORPUSCULAR HEMOGLOBIN 29.5 PG (27.0-31.0); MEAN CORPUSCULAR HGB CONC 33.7 g/dL (33.0-36.5); MEAN CORPUSCULAR VOLUME 87.7 FL (78-98); MEAN PLATELET VOLUME 7.6 FL (7.4-10.4); MONOCYTES # (AUTO) 0.7 X10'3 (0-0.9); MONOCYTES % (AUTO) 9.8 % (2-12); NEUTROPHILS % (AUTO) 70.1 % (42-75); PLATELET COUNT 249 X10'3 (140-440); RED BLOOD COUNT 5.08 X10'6 (4.20-5.60); RED CELL DISTRIBUTION WIDTH 16.2 % (11.5-14.5); WHITE BLOOD COUNT 7.1 X10'3 (4.5-11.0)
[2022-04-27 07:59] LABS: APTT 28 SECONDS (22-32)
[2022-04-27 08:01] LABS: ALBUMIN 3.4 G/DL (3.4-5.0); ANION GAP 5 (8-16); BLOOD UREA NITROGEN 14 MG/DL (7-18); BUN/CREATININE RATIO 19.4 (6.6-38.0); CALCIUM 9.2 MG/DL (8.5-10.1); CHLORIDE 105 MMOL/L (99-107); CHOL/HDL RATIO 2.7 (0.00-4.99); CHOLESTEROL 170 MG/DL (0-200); CREATININE 0.72 MG/DL (0.40-0.90); GLUCOSE 128 MG/DL (70-104); HDL CHOLESTEROL 63 MG/DL (35-60); LDL CHOLESTEROL 89 MG/DL (50-100); POTASSIUM 4.2 MMOL/L (3.5-5.1); SODIUM 142 MMOL/L (135-145); TOTAL CARBON DIOXIDE 31.6 MMOL/L (24-32); TRIGLYCERIDES 76 MG/DL (20-135); eGFR 80 ML/MIN
== END 2022-04-27 23:59 | disposition home or self-care (01) ==
LOC: LAB 07:22 → EDSTATUS 05-01 12:30
PROVIDERS: ATTEND Student in an Organized Health Care Education/Training Program
DX: E78.5 Hyperlipidemia, unspecified (principal); I10 Essential (primary) hypertension; I25.10 Atherosclerotic heart disease of native coronary artery without angina pectoris
CPT/HCPCS: 36415; 80048; 80061; 85025; 85610; 85730

== ENCOUNTER 2022-05-03 14:51 | Outpatient (CLI) | payer MEDICARE ==
[2022-05-03 15:19] LABS: BASOPHILS # (AUTO) 0.1 X10'3 (0-0.2); BASOPHILS % (AUTO) 0.5 % (0-1); EOSINOPHILS # (AUTO) 0.3 X10'3 (0-0.9); EOSINOPHILS % (AUTO) 2.3 % (0-6); HEMATOCRIT 44.5 % (35.0-45.0); HEMOGLOBIN 15.5 g/dl (12.0-16.0); LYMPHOCYTES # (AUTO) 1.6 X10'3 (1.1-4.8); LYMPHOCYTES % (AUTO) 14.5 % (21-51); MEAN CORPUSCULAR HEMOGLOBIN 30.2 PG (27.0-31.0); MEAN CORPUSCULAR HGB CONC 34.8 g/dL (33.0-36.5); MEAN CORPUSCULAR VOLUME 86.9 FL (78-98); MEAN PLATELET VOLUME 8.1 FL (7.4-10.4); MONOCYTES # (AUTO) 1.3 X10'3 (0-0.9); MONOCYTES % (AUTO) 11.4 % (2-12); NEUTROPHILS % (AUTO) 71.3 % (42-75); PLATELET COUNT 290 X10'3 (140-440); RED BLOOD COUNT 5.12 X10'6 (4.20-5.60); RED CELL DISTRIBUTION WIDTH 15.9 % (11.5-14.5); WHITE BLOOD COUNT 11.3 X10'3 (4.5-11.0)
[2022-05-03 15:37] LABS: ALANINE AMINOTRANSFERASE 32 U/L (12-78); ALBUMIN 3.5 G/DL (3.4-5.0); ALKALINE PHOSPHATASE 64 IU/L (46-116); ANION GAP 8 (8-16); BILIRUBIN,TOTAL 0.5 MG/DL (0.1-1.0); BLOOD UREA NITROGEN 20 MG/DL (7-18); BUN/CREATININE RATIO 19.2 (6.6-38.0); CALCIUM 9.2 MG/DL (8.5-10.1); CHLORIDE 101 MMOL/L (99-107); CREATININE 1.04 MG/DL (0.40-0.90); SODIUM 139 MMOL/L (135-145); TOTAL CARBON DIOXIDE 29.6 MMOL/L (24-32); TOTAL PROTEIN 6.9 G/DL (6.4-8.2); eGFR 52 ML/MIN
[2022-05-03 15:39] LABS: ASPARTATE AMINO TRANSFERASE 24 U/L (10-37); GLUCOSE 163 MG/DL (70-104); POTASSIUM 3.6 MMOL/L (3.5-5.1)
[2022-05-03 16:22] LABS: COLOR,URINE YELLOW (Yellow); GLUCOSE, URINE NEGATIVE (Neg); KETONES,URINE NEGATIVE (Neg); LEUKOCYTE ESTERASE ,URINE NEGATIVE (Neg); NITRITES, URINE NEGATIVE (Neg); OCCULT BLOOD,URINE NEGATIVE (Neg); PROTEIN,URINE NEGATIVE (Neg); UROBILINOGEN,URINE 0.2 E.U/dL (0.2-1.0)
[2022-05-03 16:34] LABS: CLARITY,URINE SLIGHTLY CLOUDY (Clear); UA COLLECTION TYPE CLN CATCH MIDSTREAM
[2022-05-03 16:35] LABS: BACTERIA,URINE FEW /HPF (Neg); HYALINE CASTS 0-3 /LPF (NEGATIVE); MUCUS STRANDS FEW /LPF (Neg); RBC,URINE 0-2 /HPF (0-2); SQUAMOUS EPITHELIAL CELL,UR FEW /LPF (FEW); WBC,URINE 0-4 /HPF (0-4)
== END 2022-05-03 23:59 | disposition home or self-care (01) ==
LOC: LAB 14:51
PROVIDERS: ATTEND Family Medicine
DX: R73.03 Prediabetes (principal); R73.09 Other abnormal glucose; R25.2 Cramp and spasm; I10 Essential (primary) hypertension; R35.0 Frequency of micturition
CPT/HCPCS: 36415; 80053; 81001; 83735; 84439; 84443; 85025